=== PATIENT | male | born 1965 | race American Indian/Alaskan Native ===

== ENCOUNTER 2017-03-09 09:48 | Outpatient (CLI) | payer OTHER ==
[2017-03-09 09:57] LABS: Hematocrit 42.5 % (35.5-45.6); Hemoglobin 13.9 gm/dl (11.8-15.2); Mean Corpuscular HGB Conc 33 % (32-34); Mean Corpuscular Hemoglobin 27 pg (28-32); Mean Corpuscular Volume 84 fl (84-94); Platelet Count 258 K/mm3 (140-440); Red Blood Count 5.09 M/mm3 (3.65-5.03); Red Cell Distribution Width 14.5 % (13.2-15.2)
[2017-03-09 10:20] LABS: Albumin 4.5 g/dL (3.9-5); Calcium 9.1 mg/dL (8.4-10.2)
[2017-03-09 11:01] LABS: Creatinine,Urine 104.8 mg/dL (0.1-20.0); Protein/Creatinine Ratio,Urine 0.08
== END 2017-03-09 09:49 | disposition home or self-care (01) ==
LOC: LAB 09:48
PROVIDERS: ATTEND Internal Medicine
DX: N18.3 Chronic kidney disease, stage 3 (moderate) (principal)
CPT/HCPCS: 36415; 80048; 82040; 82570; 84100; 84156; 85027